=== PATIENT | male | born 1940 | race Caucasian/White ===

== ENCOUNTER 2018-03-04 06:01 | Day surgery (SDC) | payer MEDICAID ==
[~2018-03-04] VITALS: Ht 165.1 cm; Wt 85.9 kg
[~2018-03-04 06:01] MED LIST: SODIUM CHLORIDE 0.9% 1,000 ML IV ONE
[2018-03-04] MEDS ORDERED: SODIUM CHLORIDE 0.9% 1,000 ML IV ONE (06:30)
[2018-03-04] MEDS ORDERED: METO-558 PO (07:19)
[2018-03-04] MEDS ORDERED: OXYB10TA (07:19)
[2018-03-04] MEDS ORDERED: LEVO75 PO (07:19)
[2018-03-04] MEDS ORDERED: TRAM50TA4 PO (07:19)
[2018-03-04] MEDS ORDERED: FURO20 PO (07:19)
[2018-03-04] MEDS ORDERED: MONT10TA21 PO (07:19)
[2018-03-04] MEDS ORDERED: ALBU8HFA IH (07:19)
[2018-03-04] MEDS ORDERED: ROPI1TAB11 PO (07:19)
[2018-03-04] MEDS ORDERED: APIX5TAB PO (07:19)
[2018-03-04] MEDS ORDERED: FAMO20 PO (07:19)
[2018-03-04] MEDS ORDERED: DIGO-44 PO (07:19)
[2018-03-04] MEDS ORDERED: PRED20 PO (07:19)
[2018-03-04] MEDS ORDERED: MIDAZOLAM HCL 2 MG/2 ML VIAL ONE (08:09)
[2018-03-04] MEDS ORDERED: FentaNYL CITRATE-PF 100 MCG/2 ML VIAL ONE (08:09)
[2018-03-04] MEDS ORDERED: MethylPREDNISolone SOD SUCC 125 MG/2 ML VIAL IVP ONE (08:30)
[2018-03-04] MEDS ORDERED: MethylPREDNISolone SOD SUCC 125 MG/2 ML VIAL ONE (08:57)
[2018-03-04] MEDS ORDERED: ALBUTEROL SULFATE 2.5 MG/0.5 ML NEB SOLUTION NEB ONE (12:00)
[2018-03-04] MEDS ORDERED: BENZOCAINE 20% 50 MCG/SPRAY 57 GM TP ONE (12:00)
[2018-03-04] MEDS ORDERED: LIDOCAINE 4% 50 ML SOLUTION TP ONE (12:00)
[2018-03-04] MEDS ORDERED: LIDOCAINE 2% 30 ML JELLY TP ONE (12:00)
[2018-03-04] MEDS ORDERED: OXYGEN THERAPY IH SCH (20:00)
== END 2018-03-04 10:15 | disposition home or self-care (01) ==
LOC: SURGERY 06:01
PROVIDERS: ATTEND Internal Medicine Critical Care Medicine
DX: J38.4 Edema of larynx (principal); B37.0 Candidal stomatitis; J98.09 Other diseases of bronchus, not elsewhere classified; J98.8 Other specified respiratory disorders; R00.0 Tachycardia, unspecified; I45.81 Long QT syndrome; I11.9 Hypertensive heart disease without heart failure; M19.90 Unspecified osteoarthritis, unspecified site; M47.818 Spondylosis without myelopathy or radiculopathy, sacral and sacrococcygeal region; F19.21 Other psychoactive substance dependence, in remission; Z79.01 Long term (current) use of anticoagulants; Z72.89 Other problems related to lifestyle; Z86.19 Personal history of other infectious and parasitic diseases; Z85.46 Personal history of malignant neoplasm of prostate; Z79.891 Long term (current) use of opiate analgesic; Z79.899 Other long term (current) drug therapy; Z98.890 Other specified postprocedural states
CPT/HCPCS: 31623; 31624; 71045; 87015; 87070; 87077; 87186; 87205; 87206; 87220; 88108; 88312; 93005; J2250; J2930; J3010; J7030; 99152